=== PATIENT | male | born 1955 | race Caucasian/White ===

== ENCOUNTER 2016-10-28 20:22 | Emergency (ER) | payer OTHER ==
[~2016-10-28 20:22] MED LIST: ATACAND4 MG PO; CARDIZEM C1 PO; FUROSEMIDE20 MG PO; ISOSORBIDE MONO30 MG PO; TAMSULOSIN HCL0.4 MG PO; XARELTO10 MG PO; XARELTO15 MG PO
--- NOTE | 2016-10-28 22:36 | ED ORDER SUMMARY ---
..... Patient: MICHOACANO KEENAN OrderSheet [facility] VisitID: [id number] [place] [address] 61y, M Registration Date/Time: 10/28/2016 ORDER SHEET Weight: 72.5 kg (stated) Allergies: Penicillin, Penicillins GENERAL ORDERS: Culture, Wound Deep (Groin) (penis) Urgent (20:55 10/28/2016 HBivens A.R.N.P.) (Ack 20:58 NHouse ER Tech1) (21:16 DBeyer R.N.) Blood Culture (No) (N/A) Urgent (20:55 10/28/2016 HBivens A.R.N.P.) (Ack 20:58 NHouse ER Tech1) (21:16 DBeyer R.N.) CBC w Diff Urgent (20:55 10/28/2016 HBivens A.R.N.P.) (Ack 20:58 NHouse ER Tech1) (21:16 DBeyer R.N.) CMP Urgent (20:55 10/28/2016 HBivens A.R.N.P.) (Ack 20:58 NHouse ER Tech1) (21:16 DBeyer R.N.) - (RPR stat please) (20:56 10/28/2016 HBivens A.R.N.P.) (Ack 20:58 NHouse ER Tech1) (21:37 NHouse ER Tech1) UA-Culture if indicated Urgent (20:56 10/28/2016 HBivens A.R.N.P.) (Ack 20:58 NHouse ER Tech1) (22:40 AMcQuoid ER Tech1) Urine Drug Screen Urgent (20:56 10/28/2016 HBivens A.R.N.P.) (Ack 20:58 NHouse ER Tech1) (22:40 AMcQuoid ER Tech1) GC/Chlamydia, Urine (Urine, Clean Catch) (urine) Urgent (22:37 10/28/2016 HBivens A.R.N.P.) (Ack 22:40 AMcQuoid ER Tech1) (22:40 AMcQuoid ER Tech1) MEDICATION ORDERS: IV FLUIDS: IV Saline Lock (20:55 10/28/2016 HBivens A.R.N.P.) (21:17 DBeyer R.N.) Ceftriaxone IV 1 gm/50mL (NOW) (22:33 10/28/2016 HBivens A.R.N.P.) (22:49 DBeyer R.N.) Toradol IV 30 mg (NOW) (22:36 10/28/2016 HBivens A.R.N.P.) (22:49 DBeyer R.N.) ORDER SHEET NOTES: [Electronically signed by Jeffery Negrete R.N. (05:51 10/29/2016)] [Electronically signed by Floridalma Smalls.R.N.P. (13:06 10/31/2016)] [Electronically locked/signed by Jeffery Negrete R.N. (05:51 10/29/2016)]
--- NOTE | 2016-10-28 22:36 | ED NURSING NOTES ---
Clinical Report - Nurses [facility]ly [facility] [address] [place] [address] 10/28/2016 20:23 Patient: MICHOACANO KEENAN TRIAGE Triage time 20:37 Oct 28 2016. Acuity: LEVEL 3. Chief Complaint: SKIN PROBLEM and TENDER AREA. --20:42 Jeffery Negrete R.N. 20:29 10/28/16. BP: 118/95. HR: 73. RR: 18. O2 saturation: 93%. Temp: 98.5 F. Pain level now 8/10. --20:42 Jeffery Negrete R.N. Weight: 72.5 kg stated. Height/Length: 65 inches Per Patient. BMI: 26.6. --20:39 Jeffery Negrete R.N. Medications ASA Oral 81mg , PRN . --20:39 Jeffery Negrete R.N. Allergies Penicillin. --20:38 Jeffery Negrete R.N. Penicillins. --20:39 Jeffery Negrete R.N. History Arrived by private vehicle. ( Pt has multiple complaints including swelling to penis and decreased circulation to his hands). SOCIAL HX: Smoker- current status unknown (smokeless). No alcohol use or drug use. --20:42 Jeffery Negrete R.N. Interventions ID band on patient. To treatment room. --20:42 Jeffery Negrete R.N. PHYSICAL ASSESSMENT GENERAL / NEURO / PSYCH: Alert. Appears in pain and anxious. HEENT: Pupils equal, round and reactive to light. CVS: Capillary refill is greater than 2 seconds. GI / : ( swelling to penis). --20:43 Jeffery eNgrete R.N. NURSING PROGRESS NOTES Monitoring of patient in place. Patient gowned. Call light placed in reach of patient. ( ROAD SUPERVISOR at bedside to numb area and perform drainage). --20:45 Jeffery Negrete R.N. 20:45 10/28/16. BP: 131/106. O2 saturation: 100%. --20:45 Jeffery Negrete R.N. 21:17 10/28/2016 Site #1 started via IV in the right antecubital space with an 20g angiocath, with aseptic technique and good blood return; two attempts. Blood drawn: rainbow set and cultures x1. Saline lock flushed with saline. --21:17 Jeffery Negrete R.N. 21:19 10/28/16. BP: 124/93. --21:20 Jeffery Negrete R.N. ( Penis drained of fluid pt tolerated poorly). --21:20 Jeffery Negrete R.N. 22:44 10/28/2016 Toradol IVP 30 mg given over 2 minute(s) via site #1. Allergies verified and confirmed 5 rights. IV patency established. IV site checked: no pain, redness, or swelling. IV flushed thoroughly pre- and post-medication administration. IVP given by RN. --22:49 Jeffery Negrete R.N. 22:49 10/28/2016 Started 1 gm of Ceftriaxone IVPB in bag #1 50 mL; at 100 mL/hr over 30 minute(s) via site #1; Allergies verified and confirmed 5 rights. IV patency established. IV site checked: no pain, redness, or swelling. IV flushed thoroughly pre- and post-medication administration. Completed per protocol. --22:49 Jeffery Negrete R.N. DISPOSITION / DISCHARGE Departure time: 2305. Learning barriers present. Ability to learn limited by poor cooperation. Discharge instructions provided and reviewed with the patient and family. Reviewed medication(s) information. Patient and family verbalized understanding. Written instructions provided in Moroccan. The patient was discharged by the nurse practitioner. He was discharged home and accompanied by family. He left the Emergency Department ambulatory and via private vehicle. Family member driving. ( Pt ambulated on discharge steady on his feet verbalized understanding of discharge instructions and follow up care). --23:13 Jeffery Negrete R.N. 23:11 10/28/16. BP: 144/89. HR: 77. RR: 18. O2 saturation: 99%. Temp: 98.3 F. Pain level now 5/10. --23:13 Jeffery Negrete R.N. Locked/Released at 10/29/2016 5:51 by Jeffery Negrete R.N.
--- NOTE | 2016-10-28 22:36 | ED ORDER SUMMARY ---
..... Patient: MICHOACANO KEENAN OrderSheet [facility] VisitID: [id number] [place] [address] 61y, M Registration Date/Time: 10/28/2016 ORDER SHEET Weight: 72.5 kg (stated) Allergies: Penicillin, Penicillins GENERAL ORDERS: Culture, Wound Deep (Groin) (penis) Urgent (20:55 10/28/2016 HBivens A.R.N.P.) (Ack 20:58 NHouse ER Tech1) (21:16 DBeyer R.N.) Blood Culture (No) (N/A) Urgent (20:55 10/28/2016 HBivens A.R.N.P.) (Ack 20:58 NHouse ER Tech1) (21:16 DBeyer R.N.) CBC w Diff Urgent (20:55 10/28/2016 HBivens A.R.N.P.) (Ack 20:58 NHouse ER Tech1) (21:16 DBeyer R.N.) CMP Urgent (20:55 10/28/2016 HBivens A.R.N.P.) (Ack 20:58 NHouse ER Tech1) (21:16 DBeyer R.N.) - (RPR stat please) (20:56 10/28/2016 HBivens A.R.N.P.) (Ack 20:58 NHouse ER Tech1) (21:37 NHouse ER Tech1) UA-Culture if indicated Urgent (20:56 10/28/2016 HBivens A.R.N.P.) (Ack 20:58 NHouse ER Tech1) (22:40 AMcQuoid ER Tech1) Urine Drug Screen Urgent (20:56 10/28/2016 HBivens A.R.N.P.) (Ack 20:58 NHouse ER Tech1) (22:40 AMcQuoid ER Tech1) GC/Chlamydia, Urine (Urine, Clean Catch) (urine) Urgent (22:37 10/28/2016 HBivens A.R.N.P.) (Ack 22:40 AMcQuoid ER Tech1) (22:40 AMcQuoid ER Tech1) MEDICATION ORDERS: IV FLUIDS: IV Saline Lock (20:55 10/28/2016 HBivens A.R.N.P.) (21:17 DBeyer R.N.) Ceftriaxone IV 1 gm/50mL (NOW) (22:33 10/28/2016 HBivens A.R.N.P.) (22:49 DBeyer R.N.) Toradol IV 30 mg (NOW) (22:36 10/28/2016 HBivens A.R.N.P.) (22:49 DBeyer R.N.) ORDER SHEET NOTES: [Electronically signed by Jeffery Negrete R.N. (05:51 10/29/2016)] [Electronically signed by Floridalma Smalls.R.N.P. (13:06 10/31/2016)] [Electronically locked/signed by Jeffery Negrete R.N. (05:51 10/29/2016)]
--- NOTE | 2016-10-28 22:36 | ED NURSING NOTES ---
Clinical Report - Nurses [facility] [address] [place] [address] 10/28/2016 20:23 Patient: MICHOACANO KEENAN TRIAGE Triage time 20:37 Oct 28 2016. Acuity: LEVEL 3. Chief Complaint: SKIN PROBLEM and TENDER AREA. --20:42 Jeffery Negrete R.N. 20:29 10/28/16. BP: 118/95. HR: 73. RR: 18. O2 saturation: 93%. Temp: 98.5 F. Pain level now 8/10. --20:42 Jeffery Negrete R.N. Weight: 72.5 kg stated. Height/Length: 65 inches Per Patient. BMI: 26.6. --20:39 Jeffery Negrete R.N. Medications ASA Oral 81mg , PRN . --20:39 Jeffery Negrete R.N. Allergies Penicillin. --20:38 Jeffery Negrete R.N. Penicillins. --20:39 Jeffery Negrete R.N. History Arrived by private vehicle. ( Pt has multiple complaints including swelling to penis and decreased circulation to his hands). SOCIAL HX: Smoker- current status unknown (smokeless). No alcohol use or drug use. --20:42 Jeffery Negrete R.N. Interventions ID band on patient. To treatment room. --20:42 Jeffery Negrete R.N. PHYSICAL ASSESSMENT GENERAL / NEURO / PSYCH: Alert. Appears in pain and anxious. HEENT: Pupils equal, round and reactive to light. CVS: Capillary refill is greater than 2 seconds. GI / : ( swelling to penis). --20:43 Jeffery Negrete R.N. NURSING PROGRESS NOTES Monitoring of patient in place. Patient gowned. Call light placed in reach of patient. ( CAMPUS DEAN at bedside to numb area and perform drainage). --20:45 Jeffery Negrete R.N. 20:45 10/28/16. BP: 131/106. O2 saturation: 100%. --20:45 Jeffery Negrete R.N. 21:17 10/28/2016 Site #1 started via IV in the right antecubital space with an 20g angiocath, with aseptic technique and good blood return; two attempts. Blood drawn: rainbow set and cultures x1. Saline lock flushed with saline. --21:17 Jeffery Negrete R.N. 21:19 10/28/16. BP: 124/93. --21:20 Jeffery Negrete R.N. ( Penis drained of fluid pt tolerated poorly). --21:20 Jeffery Negrete R.N. 22:44 10/28/2016 Toradol IVP 30 mg given over 2 minute(s) via site #1. Allergies verified and confirmed 5 rights. IV patency established. IV site checked: no pain, redness, or swelling. IV flushed thoroughly pre- and post-medication administration. IVP given by RN. --22:49 Jeffery Negrete R.N. 22:49 10/28/2016 Started 1 gm of Ceftriaxone IVPB in bag #1 50 mL; at 100 mL/hr over 30 minute(s) via site #1; Allergies verified and confirmed 5 rights. IV patency established. IV site checked: no pain, redness, or swelling. IV flushed thoroughly pre- and post-medication administration. Completed per protocol. --22:49 Jeffery Negrete R.N. DISPOSITION / DISCHARGE Departure time: 2305. Learning barriers present. Ability to learn limited by poor cooperation. Discharge instructions provided and reviewed with the patient and family. Reviewed medication(s) information. Patient and family verbalized understanding. Written instructions provided in Uruguayan. The patient was discharged by the nurse practitioner. He was discharged home and accompanied by family. He left the Emergency Department ambulatory and via private vehicle. Family member driving. ( Pt ambulated on discharge steady on his feet verbalized understanding of discharge instructions and follow up care). --23:13 Jeffery Negrete R.N. 23:11 10/28/16. BP: 144/89. HR: 77. RR: 18. O2 saturation: 99%. Temp: 98.3 F. Pain level now 5/10. --23:13 Jeffery Negrete R.N. Locked/Released at 10/29/2016 5:51 by Jeffery Negrete R.N.
--- NOTE | 2016-10-28 22:36 | ED CLINICAL REPORT ---
Clinical Report - Physicians/Mid Levels [facility] [address] [place] [address] 10/28/2016 20:23 Patient: MICHOACANO KEENAN Time Seen: 2030; upon arrival, initial patient contact, initial documentation, patient care assumed. Arrived- By private vehicle. Historian- patient and daughter. HISTORY OF PRESENT ILLNESS Chief Complaint: LESION, BOIL and TENDER AREA. This started about 3 - 4 days ago and is still present. Not itchy or burning. It is described as painful. It has been located on the penis. No cause has been identified. Similar symptoms previously: None. Recent medical care: Not recently seen/assessed. REVIEW OF SYSTEMS No fever, cough, difficulty breathing, abdominal pain or diarrhea. No vomiting. fingers are white. All systems otherwise negative, except as recorded above. PAST HISTORY See nurses notes. PAST HISTORY STD - Sexually Transmitted Disease. Hypertension. Puncture Wound. Additional Surgeries: no known surgeries. SOCIAL HISTORY Never smoker. Occasional alcohol use. History of heavy drug use: methamphetamines, marijuana. No recent travel. Is a local resident. FAMILY HISTORY Negative. ADDITIONAL NOTES The nursing notes have been reviewed with agreement regarding the chief complaint, HPI, ROS, PMH and patient medications and allergies. PHYSICAL EXAM Vital Signs: 10/28/2016 20:29 BP: 118/95. HR: 73. RR: 18. O2 saturation: 93%. Temp: 98.5 F. Have been reviewed as abnormal and appear to be correct. Blood pressure normal. Heart rate normal. Respiratory rate normal. Temperature normal. Oxygen saturation low. Appearance: Alert. Oriented X3. No acute distress. Neck: Neck supple. CVS: Normal heart rate and rhythm. Heart sounds normal. Respiratory: No respiratory distress. Breath sounds normal. Chest nontender. Abdomen: Nontender. No organomegaly. Skin: Skin warm and dry. Normal skin color. No rash. Normal skin turgor. Single medium abscess with drainage and cellulitis (L side of penis shaft, open and draining, hole approx 1.5cm and L entire side of penis swollen, tender, erythematous, and warm). No fluctuance or pointing. Extremities: Abnormal external inspection. Extremities nontender. (all digits on B hands pale from mip down). Neuro: Oriented X 3. No motor deficit. No sensory deficit. LABS, X-RAYS, AND EKG Laboratory Tests: UA-Culture if indicated: (ANTONELLA: 10/28/2016 21:24) ( [facility] [place] 10/28/2016 21:47) Final results Test Result Flag Units (Reference) URINE COLOR YELLOW URINE APPEARANCE SL CLOUDY URINE GLUCOSE NEGATIVE (NEGATIVE) URINE BILIRUBIN NEGATIVE (NEGATIVE) URINE KETONE NEGATIVE (NEGATIVE) URINE SPECIFIC GRAVITY 1.025 (1.010-1.030) URINE PH 5.5 (5.0-8.0) URINE PROTEIN 1+ (NEGATIVE) URINE UROBILINOGEN 0.2 EU/dL (0.2-1.0) URINE NITRITE POSITIVE (NEGATIVE) URINE BLOOD 3+ (NEGATIVE) URINE LEUK ESTERASE POSITIVE (NEGATIVE) URINE RBC 5-10 rbc/hpf (0-1) URINE WBC 50-75 wbc/hpf (0-1) URINE EPITHELIAL CELLS 3-5 EPI/hpf (0-5) URINE BACTERIA MODERATE (2+ TO 3+) (NONE SEEN) URINE COMMENT CULTURE INDICATED HYALINE CASTS 2+GRANULAR CASTS 1+URINE CULTURES ARE SET-UP BASED ON THE FOLLOWING CRITERIA:POSITIVE NITRITEPOSITIVE LEUKOCYTE ESTERASEGREATER THAN 10 WHITE BLOOD CELLSMODERATE (2+) OR GREATER BACTERIA CBC w Diff: (ANTONELLA: 10/28/2016 21:00) ( [facility] [place] 10/28/2016 21:24) Final results Test Result Flag Units (Reference) WHITE BLOOD COUNT 13.0 H K/uL (4.5-11.5) RED BLOOD COUNT 5.60 M/uL (4.50-5.90) HEMOGLOBIN 16.4 gm/dL (13.5-17.5) HEMATOCRIT 50.0 % (41.0-53.0) MEAN CELL VOLUME 89 fL (80-100) MEAN CORPUSCULAR HGB 29 pg (26-34) MEAN CORPUSCULAR HGB CONC 33 g/dL (31-37) RED CELL DISTRIBUTION WIDTH 13.7 % (11.6-14.8) PLATELET COUNT 345 K/uL (150-400) NEUTROPHIL % 80.5 H % (50-75) LYMPH % 13.0 L % (25-40) MONO % 4.5 % (3-14) EOSINOPHIL % 1.7 % (0-4) BASOPHIL % 0.3 % (0-2) Urine Drug Screen: (ANTONELLA: 10/28/2016 21:24) ( [facility] [place] 10/28/2016 21:53) Final results Test Result Flag Units (Reference) AMPHETAMINE/METHAMPHETAMINE POSITIVE H (NEGATIVE) BARBITURATE NEGATIVE (NEGATIVE) BENZODIAZEPINE NEGATIVE (NEGATIVE) CANNABINOID NEGATIVE (NEGATIVE) COCAINE NEGATIVE (NEGATIVE) ECSTASY NEGATIVE (NEGATIVE) METHADONE NEGATIVE (NEGATIVE) OPIATE NEGATIVE (NEGATIVE) The urine drug screen is a qualitative screening test fordrug overdose and abuse. All screen results should beconsidered as presumptive.Drugs screened for are as follows:BenzodiazepinesCocaineAmphetamines/MetamphetaminesTHC (Tetrahydrocannabinol)OpiatesBarbituratesEcstasyMethadonePositive results are unconfirmed. For confirmation, notifythe lab for the specimen to be sent to the reference lab.All confirmations must be performed by a differentmethodology.The ingestion of natural herbal and plant productscontaining Ephedra/Ephedra metabolites can produce in urineone or more substances capable of cross reacting withamphetamine/methamphetamine immunoassays. These testsprovide a preliminary result only. A more specificalternative chemical method must be used to obtain aconfirmed analytical result. CMP: (ANTONELLA: 10/28/2016 21:00) ( [facility] 10/28/2016 22:13) Final results Test Result Flag Units (Reference) GLUCOSE 130 H mg/dL (70-110) BUN 29 H mg/dL (7-18) CREATININE 1.8 H mg/dL (0.6-1.3) Estimated GFR 40.97 mL/min Estimated GFR- 49.66 mL/min Note: Persistent reduction over 3 months in eGFR<60 mL/min/1.73 m2 defines CKD. Patients with eGFR values>=60 mL/min/1.73 m2 may also have CKD if evidence ofpersistent proteinuria. Additional information may be foundat www.kidney.org. SODIUM 138 mmol/L (136-145) POTASSIUM 4.5 mmol/L (3.5-5.1) CHLORIDE 101 mmol/L (98-107) CARBON DIOXIDE 23 mmol/L (21-32) CALCIUM 9.0 mg/dL (8.5-10.1) TOTAL PROTEIN 8.2 g/dL (6.4-8.2) ALBUMIN 3.1 L g/dL (3.3-5.0) BILIRUBIN, TOTAL 0.4 mg/dL (0.0-1.0) ALKALINE PHOSPHATASE 148 H U/L (46-116) AST (SGOT) 26 U/L (15-37) ALT (SGPT) 44 U/L (12-78) . PROGRESS AND PROCEDURES Course of Care: long discussion with re importance with compliance of meds, wound care, f/u pt has appt on 11/04, encouraged to see dr sooner if able. Patient and relative counseled in person regarding the patient's stable condition, test results and diagnosis. 22:34. Differential Diagnosis: Other possible considerations: abscess, cellulitis, mrsa, syphyllis, sepsis, anemia, chf, raynauds. Above considerations are based on history, physical exam and laboratory data. Differential diagnosis was discussed with patient and patient's family. Disposition: Discharged home in good and improved condition (22:36). Condition: good and stable. CLINICAL IMPRESSION Single deep abscess to the genitalia (penis). Acute renal insufficiency. Acute urinary tract infection with cystitis. No pyelonephritis or hematuria. Not associated with indwelling catheter or obstruction. INSTRUCTIONS Warnings: Further evaluation is necessary in order to recheck abnormal lab and assess the possibility of serious illness. It is very important to follow up with a physician. GENERAL WARNINGS: Return or contact your physician immediately if your condition worsens or changes unexpectedly, if not improving as expected, or if other problems arise. Specifically return if problem worsens. Prescription Medications: Bactrim DS 800 mg / 160 mg: take 1 tablet orally every 12 hours for 10 days. No refill. Toradol 10 mg tablets: Take 1 tablet orally every 6 hours as needed. Dispense fifteen (15). No refills. Substitution is permissible. Follow-up: Follow up with your doctor in about two days even if well and for wound check. Call for an appointment. Reason for referral: as scheduled or in 2 days if able. Summary of care provided to patient and family. Understanding of the discharge instructions verbalized by patient and family. (Electronically signed by Floridalma Smalls A.R.N.P. 10/31/2016 13:06) Addenda MICHOACANO Negro VisitID: [id number] Date: 10/28/2016 10/30/2016 14:11 contact made with Mr Keenan by phone, re:wound culture: antibiotic needs to be changed to Cipro 500 mg, 1 po bid, #14 per Lissa SAL; called to [facility] Benavides in [place] (Electronically signed by Ada Byers R.N. - 10/30/2016 14:11)
--- NOTE | 2016-10-31 13:06 | ED DISCHARGE INSTRUCTIONS ---
Patient: MICHOACANO KEENAN General Instructions [facility] VisitID: [id number] [place] [address] 61y, M Registration Date/Time: 10/28/2016 Single deep abscess to the genitalia (penis). Acute renal insufficiency. Acute urinary tract infection with cystitis. No pyelonephritis or hematuria. Not associated with indwelling catheter or obstruction. INSTRUCTIONS Warnings: Further evaluation is necessary in order to recheck abnormal lab and assess the possibility of serious illness. It is very important to follow up with a physician. GENERAL WARNINGS: Return or contact your physician immediately if your condition worsens or changes unexpectedly, if not improving as expected, or if other problems arise. Specifically return if problem worsens. Prescription Medications: Bactrim DS 800 mg / 160 mg: take 1 tablet orally every 12 hours for 10 days. No refill. Toradol 10 mg tablets: Take 1 tablet orally every 6 hours as needed. Dispense fifteen (15). No refills. Substitution is permissible. Follow-up: Follow up with your doctor in about two days even if well and for wound check. Call for an appointment. Reason for referral: as scheduled or in 2 days if able. Summary of care provided to patient and family. Understanding of the discharge instructions verbalized by patient and family. ADDITIONAL INFORMATION Abscess (Antibiotic Treatment Only) An abscess (sometimes called a boil) occurs when bacteria get trapped under the skin and begin to grow. Pus forms inside the abscess as the body responds to the bacteria. An abscess can occur with an insect bite, ingrown hair, blocked oil gland, pimple, cyst, or puncture wound. In the early stages, redness and tenderness are the only symptoms. Sometimes, this stage can be treated with antibiotics alone. If the abscess does not respond to antibiotic treatment, it will need to be drained with a small cut, under local anesthesia. Home care The following will help you care for your abscess at home: Soak the wound in hot water or apply hot packs (small towel soaked in hot water) to the area for 20 minutes at a time. Do this three to four times a day. Apply antibiotic cream or ointment onto the skin 3-4 times a day, unless something else was prescribed. Some ointments include an antibiotic plus a local pain reliever. If your doctor prescribed antibiotics, do not stop taking this medication until you have finished the prescribed course or the doctor tells you to stop. You may use an unkz-agf-uvbeoik pain medication to control pain, unless another pain medicine was prescribed. If you have chronic liver or kidney disease or ever had a stomach ulcer or GI bleeding, talk with your doctor before using these any of these. Follow-up care Follow up with your health care provider as advised by our staff. Look at your wound each day for the signs of worsening infection listed below. When to seek medical care Get prompt medical attention if any of the following occur: An increase in redness or swelling Red streaks in the skin leading away from the abscess An increase in local pain or swelling Fever of 100.4F (38C) or higher, or as directed by your health care provider Pus or fluid coming from the abscess Staph Infection (MRSA) "Staph" is the short name for the common bacteria called "staphylococcus aureus". Staph bacteria are often present on the skin without causing an infection. If it gets under the skin an infection occurs. This causes redness, tenderness, swelling and sometimes fluid drainage. MRSA stands for "Methicillin-Resistant Staph Aureus". Unlike a common staph infection, MRSA bacteria are resistant to the usual antibiotics and harder to treat. Also, MRSA is more toxic than common staph bacteria. It can spread quickly throughout the body and cause a life-threatening illness. MRSA is spread to others by direct physical contact with the bacteria. MRSA can also be transmitted from items contaminated by a person who has the bacteria, such as bandages, towels, bed sheets, or sports equipment. It is not spread through the air. Once you have a MRSA skin infection, you are at risk of having it recur in the future. If MRSA infection is suspected, the doctor may take a wound culture to confirm the diagnosis. Any abscess will be drained. One or sometimes two antibiotics that work against MRSA will be prescribed. Home Care: 1) Take any antibiotics prescribed exactly as directed until they are gone. 2) Follow the same washing procedures as outlined for Household Members below. 3) Keep draining wounds covered with clean, dry bandages. Change dressings as they become soiled. 4) You and those in contact with you should wash their hands frequently with soap and warm water or use an alcohol-based hand theatre professor. Do this after each time you change the bandage or touch the wound. 5) Avoid sharing personal items such as towels, washcloths, razors, clothing, or uniforms. Wash soiled sheets, towels or clothes in hot water with laundry detergent. Use an automatic clothes dryer set on high to kill any remaining bacteria. 6) Remove any artificial nails and nail russian. 7) If you use a gym, wipe down equipment before and after each use. Treatment Of Household Members If you have been diagnosed with possible MRSA infection, those living with you are at higher risk of carrying the bacteria on their skin or in their nose, even if there is no sign of infection. Bacteria must be removed from the skin of all household members (including you) at the same time, so that it is not passed back and forth. Advise them to remove the bacteria as follows: Wash your whole body (scalp to toes) daily for five days with Hibiclens (chlorhexidine). Scrub fingernails with a brush for one minute twice a day. If any skin infections are present (boils, abscess, infected cut) these must be treated by a doctor. Washing alone will not treat a MRSA infection. Clean counter tops and children's toys; do not share personal items such as toothbrush and razors. It is okay to share glasses, plates, utensils. If antibiotic ointment was prescribed use it as directed. Follow Up with your doctor or as advised by our staff. If a wound culture was taken, call as directed in two days to obtain the results. If the culture result is positive for MRSA, tell medical personnel in the future that you were treated for this type of infection. Get Prompt Medical Attention if any of the following occur: -- Increasing redness, swelling or pain -- Red streaks in the skin around the wound -- Weakness or dizziness -- New appearance of pus or drainage from the wound -- New fever over 100.4 F (38.0 C) Renal Insufficiency The role of the kidneys is to remove waste products and excess water from the body. When the kidneys do not function normally, waste products build up in the blood.The early stage of this process is called renal insufficiency . If renal insufficiency worsens it can lead to chronic renal failure. This allows excess water, waste and toxic substances to build up in the body. This can become a threat to life, requiring dialysis or a kidney transplant to stay alive. Diabetes is the leading causes of renal insufficiency. Other causes include high blood pressure, hardening of the arteries, lupus, inflammation of the blood vessels (vasculitis), prior viral and bacterial infections, and others. Certain cqmn-ikb-uqaaynj pain medicines can cause renal failure when taken often over a long period of time. These include aspirin, ibuprofen (Advil, Motrin) and related anti-inflammatory medicines. Home Care: If you have diabetes, talk to your doctor about the quality of your blood sugar control.Ask about any changes needed to your diet or medicines. If you have high blood pressure: Take your blood pressure medicine. Take up a regular exercise program that you enjoy.Check with your doctor to be sure your planned exercise program is right for you. Reduce your salt (sodium) intake.Your doctor can tell you how much salt per day is safe for you. If you are overweight, talk to your doctor about a weight loss plan. If you smoke, you must quit.Smoking worsens kidney disease.Talk to your doctor about ways to help you quit.For more information, visit the following links: www.smokefree.gov/pubs/clearing_the_air.pdf www.smokefree.gov www.quitnet.com Talk to your doctor about any dietary restrictions advised. In general, it is advisable to limit protein, salt, potassium and phosphorus.Avoid excess fluids. Do not add salt at the table and avoid salty foods.A calcium supplement may be prescribed to protect your bones from osteoporosis. Avoid the following over the counter medicines, or consult your doctor before using: Aspirin and anti-inflammatory drugs such as ibuprofen (Advil, Motrin), naprosyn (Aleve); [Short term use of acetaminophen (Tylenol) for fever or pain is okay.] Laxatives and antacids containing magnesium or aluminum (Mylanta, Maalox) Avoid Fleet or phosphosoda enemas which contain phosphorus Certain stomach acid-blocking medicine such as cimetidine (Tagamet), ranitidine (Zantac) Decongestants containing pseudoephedrine (such as some forms of Sudafed or Actifed) Herbal supplements Follow Up with your doctor or as advised by our staff. Contact one of the following for more information. [employer] [phone] [phone] www.aakp.org National Kidney Foundation www.kidney.org Return Promptly or contact your doctor if any of the following occurs: Nausea or vomiting Severe weakness, dizziness, fainting, drowsiness or confusion Chest pain or shortness of breath Unexpected weight gain or swelling in the legs, ankles or around the eyes Heart beating fast, slow or irregularly Decrease or loss in urine output Bladder Infection,Male (Adult) A bladder infection ("cystitis" or "UTI") usually causes a constant urge to urinate, and a burning when passing urine. Urine may be cloudy, smelly or dark. There may be also be pain in the lower abdomen. Cystitis in males is not common. It may be caused by a partial blockage in the urinary system that keeps the bladder from emptying completely. This is most often related to an enlarged prostate gland. Home Care: Drink lots of fluids (at least 6-8 glasses a day). This will flush the bacteria out of your bladder. Avoid sexual intercourse until your symptoms are gone. Avoid caffeine, alcohol, and spicy foods. They could irritate the bladder. A bladder infection is treated with antibiotics. You may also be given Pyridium (generic - phenazopyridine) to reduce burning with urination. This will cause urine to become a bright orange color, which can stain clothing. Follow Up with your doctor or this facility if ALL symptoms have not cleared within five days. It is important to keep your follow up appointment to discuss with your doctor the need for further tests of the urinary tract. Get Prompt Medical Attention if any of the following occur: Fever of 100.4F (38C) or higher, or as directed by your healthcare provider No improvement by the third day of treatment Increasing back or abdominal pain Repeated vomiting; unable to keep medicine down Weakness, dizziness or fainting Sulfamethoxazole, Trimethoprim Oral tablet What is this medicine? SULFAMETHOXAZOLE; TRIMETHOPRIM or SMX-TMP (suhl fuh meth OK jose j zohl; trye METH oh prim) is a combination of a sulfonamide antibiotic and a second antibiotic, trimethoprim. It is used to treat or prevent certain kinds of bacterial infections. It will not work for colds, flu, or other viral infections. How should I use this medicine? Take this medicine by mouth with a full glass of water. Follow the directions on the prescription label. Take your medicine at regular intervals. Do not take it more often than directed. Do not skip doses or stop your medicine early. Talk to your bullet swaging machine operator regarding the use of this medicine in children. Special care may be needed. This medicine has been used in children as young as 2 months of age. What side effects may I notice from receiving this medicine? Side effects that you should report to your doctor or health respiratory care instructor as soon as possible: allergic reactions like skin rash or hives, swelling of the face, lips, or tongue breathing problems fever or chills, sore throat irregular heartbeat, chest pain joint or muscle pain pain or difficulty passing urine red pinpoint spots on skin redness, blistering, peeling or loosening of the skin, including inside the mouth unusual bleeding or bruising unusually weak or tired yellowing of the eyes or skin Side effects that usually do not require medical attention (report to your doctor or health respiratory care instructor if they continue or are bothersome): diarrhea dizziness headache loss of appetite nausea, vomiting nervousness What may interact with this medicine? Do not take this medicine with any of the following medications: aminobenzoate potassium dofetilide metronidazole This medicine may also interact with the following medications: APARNA inhibitors like benazepril, enalapril, lisinopril, and ramipril cyclosporine digoxin diuretics indomethacin medicines for diabetes methenamine methotrexate phenytoin potassium supplements pyrimethamine sulfinpyrazone tricyclic antidepressants warfarin What if I miss a dose? If you miss a dose, take it as soon as you can. If it is almost time for your next dose, take only that dose. Do not take double or extra doses. Where should I keep my medicine? Keep out of the reach of children. Store at room temperature between 20 to 25 degrees C (68 to 77 degrees F). Protect from light. Throw away any unused medicine after the expiration date. What should I tell my health care provider before I take this medicine? They need to know if you have any of these conditions: anemia asthma being treated with anticonvulsants if you frequently drink alcohol containing drinks kidney disease liver disease low level of folic acid or iykkzzv-3-rgzlewnxo dehydrogenase poor nutrition or malabsorption porphyria severe allergies thyroid disorder an unusual or allergic reaction to sulfamethoxazole, trimethoprim, sulfa drugs, other medicines, foods, dyes, or preservatives or trying to get breast-feeding What should I watch for while using this medicine? Tell your doctor or health respiratory care instructor if your symptoms do not improve. Drink several glasses of water a day to reduce the risk of kidney problems. Do not treat diarrhea with over the counter products. Contact your doctor if you have diarrhea that lasts more than 2 days or if it is severe and watery. This medicine can make you more sensitive to the sun. Keep out of the sun. If you cannot avoid being in the sun, wear protective clothing and use a sunscreen. Do not use sun lamps or tanning beds/booths. Ketorolac Tromethamine Oral tablet What is this medicine? KETOROLAC (joya toe ROLE ak) is a non-steroidal anti-inflammatory drug (NSAID). It is used for a short while to treat moderate to severe pain, including pain after surgery. It should not be used for more than 5 days. How should I use this medicine? Take this medicine by mouth with a full glass of water. Follow the directions on the prescription label. Take your medicine at regular intervals. Do not take your medicine more often than directed. Do not take more than the recommended dose. A special MedGuide will be given to you by the pharmacist with each prescription and refill. Be sure to read this information carefully each time. Talk to your bullet swaging machine operator regarding the use of this medicine in children. While this drug may be prescribed for children as young as 16 years of age for selected conditions, precautions do apply. Patients over 65 years old may have a stronger reaction and need a smaller dose. What side effects may I notice from receiving this medicine? Side effects that you should report to your doctor or health respiratory care instructor as soon as possible: allergic reactions like skin rash, itching or hives, swelling of the face, lips, or tongue black or tarry stools breathing problems changes in vision chest pain high blood pressure nausea or vomiting redness, blistering, peeling or loosening of the skin, including inside the mouth severe abdominal pain slurred speech or weakness on one side of the body unexplained weight gain or swelling unusual bleeding or bruising unusually weak or tired yellowing of eyes or skin Side effects that usually do not require medical attention (report to your doctor or health respiratory care instructor if they continue or are bothersome): diarrhea dizziness headache heartburn What may interact with this medicine? Do not take this medicine with any of the following medications: aspirin and aspirin-like medicines cidofovir methotrexate NSAIDs, medicines for pain and inflammation, like ibuprofen or naproxen pemetrexed probenecid This medicine may also interact with the following medications: alcohol alendronate alprazolam carbamazepine cyclosporine diuretics flavocoxid fluoxetine ginkgo lithium medicines for high blood pressure like enalapril medicines that affect platelets like pentoxifylline medicines that treat or prevent blood clots like heparin, warfarin muscle relaxants phenytoin steroid medicines like prednisone or cortisone thiothixene What if I miss a dose? If you miss a dose, take it as soon as you can. If it is almost time for your next dose, take only that dose. Do not take double or extra doses. Where should I keep my medicine? Keep out of the reach of children. Store at room temperature between 20 and 25 degrees C (68 and 77 degrees F). Throw away any unused medicine after the expiration date. What should I tell my health care provider before I take this medicine? They need to know if you have any of these conditions: asthma bleeding problems like hemophilia cigarette smoker drink more than 3 alcohol containing drinks a day heart disease or circulation problems such as heart failure or leg edema (fluid retention) high blood pressure kidney disease liver disease stomach bleeding or ulcers an unusual or allergic reaction to ketorolac, aspirin, other NSAIDs, other medicines, foods, dyes, or preservatives or trying to get breast-feeding What should I watch for while using this medicine? Tell your doctor or health respiratory care instructor if your pain does not get better. Talk to your doctor before taking another medicine for pain. Do not treat yourself. This medicine does not prevent heart attack or stroke. In fact, this medicine may increase the chance of a heart attack or stroke. The chance may increase with longer use of this medicine and in people who have heart disease. If you take aspirin to prevent heart attack or stroke, talk with your doctor or health respiratory care instructor. Do not take medicines such as ibuprofen and naproxen with this medicine. Side effects such as stomach upset, nausea, or ulcers may be more likely to occur. Many medicines available without a prescription should not be taken with this medicine. This medicine can cause ulcers and bleeding in the stomach and intestines at any time during treatment. Do not smoke cigarettes or drink alcohol. These increase irritation to your stomach and can make it more susceptible to damage from this medicine. Ulcers and bleeding can happen without warning symptoms and can cause . You may get drowsy or dizzy. Do not drive, use machinery, or do anything that needs mental alertness until you know how this medicine affects you. Do not stand or sit up quickly, especially if you are an older patient. This reduces the risk of dizzy or fainting spells. This medicine can cause you to bleed more easily. Try to avoid damage to your teeth and gums when you brush or floss your teeth. You have been given the following additional information: Abscess, Antiobiotic Treatment Only MRSA Skin Infection, Suspected Or Confirmed Renal Insufficiency Bladder Infection, Male (Adult) Sulfamethoxazole, Trimethoprim Oral tablet Ketorolac Tromethamine Oral tablet (Electronically signed by Floridalma Smalls A.R.N.P. 10/31/2016 13:06)
--- NOTE | 2016-10-31 13:07 | ED MED RECONCILIATION SUMMARY ---
Patient: MICHOACANO KEENAN Medication Reconciliation Report [facility] VisitID: [id number] [address] [place] [address] 61y, M Registration Date/Time: 10/28/2016 Weight: 72.5 kg Height/Length: 65 in. BMI: 26.6 ALLERGIES: Penicillin, Penicillins The patient's Home Medications are listed below: THE FOLLOWING MEDICATIONS NEED TO BE RECONCILED: ASA Oral 81mg , PRN The source(s) of the original Home Medication information: Not obtained. The following Medications were given to the patient in the Emergency Department: Ceftriaxone [IVPB] IVPB bolus 0, then 1 gm 100 mL/hr, administered: 10/28/2016 10:49:00 PM Toradol [IVP] IVP 30 mg, administered: 10/28/2016 10:44:00 PM The following Medications were prescribed to the patient: Bactrim DS 800 mg / 160 mg: take 1 tablet orally every 12 hours for 10 days. No refill. -- Floridalma Smalls A.R.N.P. Toradol 10 mg tablets: Take 1 tablet orally every 6 hours as needed. Dispense fifteen (15). No refills. Substitution is permissible. -- Floridalma Smalls A.R.N.P.
--- NOTE | 2016-10-31 13:07 | ED MED RECONCILIATION SUMMARY ---
Patient: MICHOACANO KEENAN Medication Reconciliation Report [facility] VisitID: [id number] [address] [place] [address] 61y, M Registration Date/Time: 10/28/2016 Weight: 72.5 kg Height/Length: 65 in. BMI: 26.6 ALLERGIES: Penicillin, Penicillins The patient's Home Medications are listed below: THE FOLLOWING MEDICATIONS NEED TO BE RECONCILED: ASA Oral 81mg , PRN The source(s) of the original Home Medication information: Not obtained. The following Medications were given to the patient in the Emergency Department: Ceftriaxone [IVPB] IVPB bolus 0, then 1 gm 100 mL/hr, administered: 10/28/2016 10:49:00 PM Toradol [IVP] IVP 30 mg, administered: 10/28/2016 10:44:00 PM The following Medications were prescribed to the patient: Bactrim DS 800 mg / 160 mg: take 1 tablet orally every 12 hours for 10 days. No refill. -- Floridalma Smalls A.R.N.P. Toradol 10 mg tablets: Take 1 tablet orally every 6 hours as needed. Dispense fifteen (15). No refills. Substitution is permissible. -- Floridalma Smalls A.R.N.P.
--- NOTE | 2016-10-31 13:07 | ED MAR SUMMARY ---
..... Medication Administration Record [facility] [address] [place] [address] Patient: MICHOACANO KEENAN Visit ID: [id number] 61y, M Weight: 72.5 kg Height/Length: 65 in BMI: 26.6 ALLERGIES: Penicillins, Penicillin Given 22:44 10/28/2016 Jeffery Negrete, RJonathanN. Medication Administered: TORADOL [IVP], Dose: 30 mg IVP over 2 minute(s), Site: #1 right AC. Medication Ordered: Toradol IV 30 mg (NOW). Start 22:49 10/28/2016 Jeffery Negrete, R.N. Medication Administered: CEFTRIAXONE [IVPB], Dose: 1 gm IVPB over 30 minute(s), Rate: 100 mL/hr, Dispensed: 50 mL bag, Site: #1 right AC. Medication Ordered: Ceftriaxone IV 1 gm/50mL (NOW).
--- NOTE | 2016-10-31 13:07 | ED MAR SUMMARY ---
..... Medication Administration Record [facility] [address] [place] [address] Patient: MICHOACANO KEENAN Visit ID: [id number] 61y, M Weight: 72.5 kg Height/Length: 65 in BMI: 26.6 ALLERGIES: Penicillins, Penicillin Given 22:44 10/28/2016 Jeffery Negrete, RJonathanN. Medication Administered: TORADOL [IVP], Dose: 30 mg IVP over 2 minute(s), Site: #1 right AC. Medication Ordered: Toradol IV 30 mg (NOW). Start 22:49 10/28/2016 Jeffery Negrete, R.N. Medication Administered: CEFTRIAXONE [IVPB], Dose: 1 gm IVPB over 30 minute(s), Rate: 100 mL/hr, Dispensed: 50 mL bag, Site: #1 right AC. Medication Ordered: Ceftriaxone IV 1 gm/50mL (NOW).
== END 2016-10-28 23:05 | disposition home or self-care (01) ==
LOC: ED SRH 20:22
DX: N48.21 Abscess of corpus cavernosum and penis (principal); N28.9 Disorder of kidney and ureter, unspecified; N30.00 Acute cystitis without hematuria; I10 Essential (primary) hypertension
CPT/HCPCS: 90004; 90065; 90070; 90100; 90131; 90148; 90309; 90469; 90470; 90627; 91227; 91228; 91672; 92760; 92761; 92762; 92763; 92764; 92765; 92766; 92767; 95059; 98480